=== PATIENT | male | born 1930 | race Caucasian/White ===

== ENCOUNTER 2017-04-28 08:10 | Inpatient (IN) | payer MEDICARE, OTHER ==
[~2017-04-28] VITALS: Ht 175.3 cm; Wt 84.0 kg
[~2017-04-28 08:10] MED LIST: AMLO2.5T2 PO; ATOR10TA PO; CALC3.7S3; CLOP75TA15 PO; DOCU-28 PO; FLUT1BLS3 IH; FURO-149 PO; GABA-532 PO; HYDR-569 PO; IPRA3AMP IH; ISOS30TA6 PO; LIDO700A5 TOP; LORA0.5T PO; MORP100S12 PO; NITR0.4T SL; PANT-47 PO; POLY119P2 PO; POTA10TA10 PO; PRED5TAB PO; SPIIN INH
[2017-04-28] MEDS ORDERED: normal saline 1000ML IV soln IVB ONE ×2 (08:45)
[2017-04-28 08:51] LABS: BASOPHILS % (AUTO) 0.2 % (0-1); EOSINOPHILS # (AUTO) 0.1 X10'3 (0-0.9); EOSINOPHILS % (AUTO) 0.9 % (0-6); HEMATOCRIT 37.7 % (42.0-52.0); HEMOGLOBIN 12.8 g/dl (14.0-17.9); LYMPHOCYTES # (AUTO) 0.6 X10'3 (1.1-4.8); LYMPHOCYTES % (AUTO) 4.4 % (21-51); MEAN CORPUSCULAR VOLUME 88.3 FL (78-98); MEAN PLATELET VOLUME 6.2 FL (7.4-10.4); MONOCYTES # (AUTO) 0.4 X10'3 (0-0.9); NEUTROPHILS # (AUTO) 11.7 X10'3 (1.8-7.7); NEUTROPHILS % (AUTO) 91.5 % (42-75); PLATELET COUNT 284 X10'3 (140-440); RED BLOOD COUNT 4.27 X10'6 (4.70-6.10); RED CELL DISTRIBUTION WIDTH 16.8 % (11.5-14.5); WHITE BLOOD COUNT 12.8 X10'3 (4.5-11.0)
[2017-04-28 09:14] LABS: ALANINE AMINOTRANSFERASE 24 U/L (12-78); ALBUMIN 3.5 G/DL (3.4-5.0); ALKALINE PHOSPHATASE 36 IU/L (46-116); ANION GAP 9 (8-16); ASPARTATE AMINO TRANSFERASE 21 U/L (10-37); BILIRUBIN,TOTAL 0.4 MG/DL (0.1-1.0); BLOOD UREA NITROGEN 20 MG/DL (7-18); BUN/CREATININE RATIO 16.5 (5.4-32.0); CALCIUM 9.2 MG/DL (8.5-10.1); CHLORIDE 102 MMOL/L (99-107); CREATININE 1.21 MG/DL (0.60-1.10); GLUCOSE 104 MG/DL (70-104); POTASSIUM 3.4 MMOL/L (3.5-5.1); SODIUM 144 MMOL/L (135-145); TOTAL CARBON DIOXIDE 32.7 MMOL/L (24-32); eGFR 57 ML/MIN
[2017-04-28] MEDS ORDERED: levoFLOXACIN-Levaquin 750MG/D5 150 ML IV STA (10:20)
[2017-04-28] MEDS ORDERED: nitroGLYCERIN 0.4mg SUBLingual tab SL PRN (11:40)
[2017-04-28] MEDS ORDERED: acetaminophen 325mg tablet PO PRN (11:45)
[2017-04-28] MEDS ORDERED: mag hydrox/Alum hydrox/simeth 30ml oral suspension PO PRN (11:45)
[2017-04-28] MEDS ORDERED: ondansetron/PF 4mg/2ml inj IV PRN (11:45)
[2017-04-28] MEDS ORDERED: magnesium hydroxide 30ml (MOM) UD suspension PO PRN (11:45)
[2017-04-28] MEDS: normal saline 1000ml 1,000 ML IV SCH ×2 (12:48→21:47)
[2017-04-28] MEDS: ipratropium/albuterol 3ml nebule IH SCH ×4 (13:15→23:09)
[2017-04-28] MEDS: docusate sod 100mg capsule PO SCH (20:39)
[2017-04-28] MEDS: heparin, porcine 5000 units/ml vial SQ SCH (20:40)
[2017-04-29] VITALS (10 sets, daily range): BP systolic 80–144; BP diastolic 39–81
[2017-04-29] MEDS: ipratropium/albuterol 3ml nebule IH SCH ×6 (03:15→23:49)
[2017-04-29 06:42] LABS: BASOPHILS % (AUTO) 0.4 % (0-1); EOSINOPHILS % (AUTO) 0.2 % (0-6); HEMOGLOBIN 12.1 g/dl (14.0-17.9); LYMPHOCYTES % (AUTO) 12.4 % (21-51); MEAN CORPUSCULAR HEMOGLOBIN 29.4 PG (27.0-31.0); MEAN CORPUSCULAR HGB CONC 33.6 % (33.0-36.5); MEAN CORPUSCULAR VOLUME 87.6 FL (78-98); MEAN PLATELET VOLUME 6.3 FL (7.4-10.4); MONOCYTES # (AUTO) 0.5 X10'3 (0-0.9); MONOCYTES % (AUTO) 6.4 % (2-12); NEUTROPHILS # (AUTO) 6.2 X10'3 (1.8-7.7); NEUTROPHILS % (AUTO) 80.6 % (42-75); PLATELET COUNT 246 X10'3 (140-440); RED BLOOD COUNT 4.11 X10'6 (4.70-6.10); WHITE BLOOD COUNT 7.7 X10'3 (4.5-11.0)
[2017-04-29 07:04] LABS: ALANINE AMINOTRANSFERASE 21 U/L (12-78); ALBUMIN 2.7 G/DL (3.4-5.0); ALBUMIN/GLOBULIN RATIO 0.8 (1.1-1.5); ALKALINE PHOSPHATASE 27 IU/L (46-116); ANION GAP 10 (8-16); ASPARTATE AMINO TRANSFERASE 30 U/L (10-37); BILIRUBIN,TOTAL 0.4 MG/DL (0.1-1.0); BLOOD UREA NITROGEN 15 MG/DL (7-18); BUN/CREATININE RATIO 16.3 (5.4-32.0); CALCIUM 8.3 MG/DL (8.5-10.1); CHLORIDE 106 MMOL/L (99-107); CREATININE 0.92 MG/DL (0.60-1.10); GLUCOSE 83 MG/DL (70-104); POTASSIUM 3.3 MMOL/L (3.5-5.1); SODIUM 144 MMOL/L (135-145); TOTAL CARBON DIOXIDE 28.1 MMOL/L (24-32); eGFR 78 ML/MIN
[2017-04-29] MEDS: fluticasone/vilanterol 200mcg/25mcg inhaler IH SCH (07:17)
[2017-04-29] MEDS: normal saline 1000ml 1,000 ML IV SCH ×2 (07:44→17:24)
[2017-04-29] MEDS: polyethylene glycol 3350 17gm powd pack PO SCH (08:00)
[2017-04-29] MEDS: potassium chloride 10mEq ER tablet PO SCH (10:10)
[2017-04-29] MEDS: predniSONE 5mg tablet PO SCH (10:10)
[2017-04-29] MEDS: docusate sod 100mg capsule PO SCH ×2 (11:05→22:21)
[2017-04-29] MEDS: pantoprazole 40mg Tablet.DR PO SCH (11:05)
[2017-04-29] MEDS: HYDROcodone/acetaminophen 5mg/325mg tablet PO PRN ×2 (11:05→22:21)
[2017-04-29] MEDS: isosorbide mononitrate 30mg tab.SR.24H PO SCH (11:05)
[2017-04-29] MEDS: atorvastatin 10mg tablet PO SCH (11:05)
[2017-04-29] MEDS: furosemide 40mg tablet PO SCH (11:06)
[2017-04-29] MEDS: levoFLOXACIN-Levaquin 250mg/D5 50 ML IV SCH (11:06)
[2017-04-29] MEDS: gabapentin 300mg capsule PO SCH (11:06)
[2017-04-29] MEDS: amLODIPine 5mg tablet PO SCH (11:06)
[2017-04-29] MEDS: clopidogrel 75mg tablet PO SCH (11:06)
[2017-04-29] MEDS: LORazepam 0.5 MG tablet PO PRN (11:06)
[2017-04-29] MEDS: heparin, porcine 5000 units/ml vial SQ SCH ×2 (11:07→22:21)
[2017-04-30] MEDS: ipratropium/albuterol 3ml nebule IH SCH ×6 (03:04→23:39)
[2017-04-30] MEDS: HYDROcodone/acetaminophen 5mg/325mg tablet PO PRN ×4 (04:23→23:28)
[2017-04-30] MEDS: normal saline 1000ml 1,000 ML IV SCH ×3 (04:23→23:53)
[2017-04-30] MEDS: LORazepam 0.5 MG tablet PO PRN ×2 (05:22→23:28)
[2017-04-30 06:51] LABS: BASOPHILS % (AUTO) 0.1 % (0-1); EOSINOPHILS # (AUTO) 0.1 X10'3 (0-0.9); EOSINOPHILS % (AUTO) 1.3 % (0-6); HEMATOCRIT 34.5 % (42.0-52.0); HEMOGLOBIN 11.5 g/dl (14.0-17.9); LYMPHOCYTES # (AUTO) 1.4 X10'3 (1.1-4.8); LYMPHOCYTES % (AUTO) 21.4 % (21-51); MEAN CORPUSCULAR HEMOGLOBIN 29.4 PG (27.0-31.0); MEAN CORPUSCULAR HGB CONC 33.3 % (33.0-36.5); MEAN CORPUSCULAR VOLUME 88.3 FL (78-98); MEAN PLATELET VOLUME 6.3 FL (7.4-10.4); MONOCYTES # (AUTO) 0.4 X10'3 (0-0.9); MONOCYTES % (AUTO) 6.6 % (2-12); NEUTROPHILS # (AUTO) 4.5 X10'3 (1.8-7.7); NEUTROPHILS % (AUTO) 70.6 % (42-75); PLATELET COUNT 234 X10'3 (140-440); RED BLOOD COUNT 3.91 X10'6 (4.70-6.10); RED CELL DISTRIBUTION WIDTH 17.1 % (11.5-14.5); WHITE BLOOD COUNT 6.4 X10'3 (4.5-11.0)
[2017-04-30 07:00] VITALS: BP 129/64
[2017-04-30 07:02] LABS: ALANINE AMINOTRANSFERASE 27 U/L (12-78); ALBUMIN 2.5 G/DL (3.4-5.0); ALBUMIN/GLOBULIN RATIO 0.8 (1.1-1.5); ALKALINE PHOSPHATASE 24 IU/L (46-116); ANION GAP 9 (8-16); ASPARTATE AMINO TRANSFERASE 37 U/L (10-37); BILIRUBIN,TOTAL 0.3 MG/DL (0.1-1.0); BLOOD UREA NITROGEN 17 MG/DL (7-18); BUN/CREATININE RATIO 17.7 (5.4-32.0); CALCIUM 7.9 MG/DL (8.5-10.1); CHLORIDE 106 MMOL/L (99-107); CREATININE 0.96 MG/DL (0.60-1.10); GLUCOSE 78 MG/DL (70-104); POTASSIUM 3.6 MMOL/L (3.5-5.1); SODIUM 144 MMOL/L (135-145); TOTAL CARBON DIOXIDE 28.8 MMOL/L (24-32); TOTAL PROTEIN 5.6 G/DL (6.4-8.2); eGFR 74 ML/MIN
[2017-04-30] MEDS: fluticasone/vilanterol 200mcg/25mcg inhaler IH SCH (07:55)
[2017-04-30] MEDS: polyethylene glycol 3350 17gm powd pack PO SCH (08:00)
[2017-04-30] MEDS: gabapentin 300mg capsule PO SCH (08:08)
[2017-04-30] MEDS: clopidogrel 75mg tablet PO SCH (08:08)
[2017-04-30] MEDS: atorvastatin 10mg tablet PO SCH (08:08)
[2017-04-30] MEDS: furosemide 40mg tablet PO SCH (08:08)
[2017-04-30] MEDS: docusate sod 100mg capsule PO SCH ×2 (08:08→19:15)
[2017-04-30] MEDS: potassium chloride 10mEq ER tablet PO SCH (08:09)
[2017-04-30] MEDS: pantoprazole 40mg Tablet.DR PO SCH (08:09)
[2017-04-30] MEDS: levoFLOXACIN-Levaquin 250mg/D5 50 ML IV SCH (08:09)
[2017-04-30] MEDS: predniSONE 5mg tablet PO SCH (08:09)
[2017-04-30] MEDS: heparin, porcine 5000 units/ml vial SQ SCH ×2 (08:09→19:15)
[2017-04-30] MEDS: isosorbide mononitrate 30mg tab.SR.24H PO SCH (08:09)
[2017-04-30] MEDS: amLODIPine 5mg tablet PO SCH (08:09)
[2017-04-30 12:13] VITALS: BP 99/70
[2017-04-30 18:52] VITALS: BP 90/50
[2017-04-30] MEDS: lactobacillus rhamnosus 10,000 MMU CELLS/CAPSULE PO SCH (19:15)
[2017-04-30 19:20] VITALS: BP 106/57
[2017-04-30 23:30] VITALS: BP 126/72
[2017-05-01] MEDS: ipratropium/albuterol 3ml nebule IH SCH ×4 (05:30→16:20)
[2017-05-01] MEDS: HYDROcodone/acetaminophen 5mg/325mg tablet PO PRN (06:06)
[2017-05-01 06:29] LABS: BASOPHILS % (AUTO) 0.2 % (0-1); EOSINOPHILS % (AUTO) 0.6 % (0-6); HEMOGLOBIN 11.8 g/dl (14.0-17.9); LYMPHOCYTES # (AUTO) 1.3 X10'3 (1.1-4.8); LYMPHOCYTES % (AUTO) 27.4 % (21-51); MEAN CORPUSCULAR HEMOGLOBIN 29.6 PG (27.0-31.0); MEAN CORPUSCULAR HGB CONC 33.8 % (33.0-36.5); MEAN CORPUSCULAR VOLUME 87.8 FL (78-98); MEAN PLATELET VOLUME 6.3 FL (7.4-10.4); MONOCYTES # (AUTO) 0.4 X10'3 (0-0.9); MONOCYTES % (AUTO) 9.3 % (2-12); NEUTROPHILS % (AUTO) 62.5 % (42-75); PLATELET COUNT 239 X10'3 (140-440); RED BLOOD COUNT 3.98 X10'6 (4.70-6.10); RED CELL DISTRIBUTION WIDTH 17.2 % (11.5-14.5); WHITE BLOOD COUNT 4.7 X10'3 (4.5-11.0)
[2017-05-01 06:49] LABS: ALANINE AMINOTRANSFERASE 23 U/L (12-78); ALBUMIN 2.6 G/DL (3.4-5.0); ALBUMIN/GLOBULIN RATIO 0.8 (1.1-1.5); ALKALINE PHOSPHATASE 26 IU/L (46-116); ANION GAP 7 (8-16); ASPARTATE AMINO TRANSFERASE 38 U/L (10-37); BILIRUBIN,TOTAL 0.4 MG/DL (0.1-1.0); BLOOD UREA NITROGEN 17 MG/DL (7-18); BUN/CREATININE RATIO 18.3 (5.4-32.0); CHLORIDE 109 MMOL/L (99-107); CREATININE 0.93 MG/DL (0.60-1.10); GLUCOSE 83 MG/DL (70-104); POTASSIUM 3.5 MMOL/L (3.5-5.1); SODIUM 146 MMOL/L (135-145); TOTAL CARBON DIOXIDE 30.3 MMOL/L (24-32); TOTAL PROTEIN 5.8 G/DL (6.4-8.2); eGFR 77 ML/MIN
[2017-05-01] MEDS: docusate sod 100mg capsule PO SCH (07:51)
[2017-05-01] MEDS: polyethylene glycol 3350 17gm powd pack PO SCH (07:51)
[2017-05-01] MEDS: predniSONE 5mg tablet PO SCH (07:51)
[2017-05-01] MEDS: isosorbide mononitrate 30mg tab.SR.24H PO SCH (07:51)
[2017-05-01] MEDS: potassium chloride 10mEq ER tablet PO SCH (07:51)
[2017-05-01] MEDS: gabapentin 300mg capsule PO SCH (07:51)
[2017-05-01] MEDS: lactobacillus rhamnosus 10,000 MMU CELLS/CAPSULE PO SCH (07:52)
[2017-05-01] MEDS: clopidogrel 75mg tablet PO SCH (07:52)
[2017-05-01] MEDS: pantoprazole 40mg Tablet.DR PO SCH (07:52)
[2017-05-01] MEDS: atorvastatin 10mg tablet PO SCH (07:52)
[2017-05-01] MEDS: heparin, porcine 5000 units/ml vial SQ SCH (07:52)
[2017-05-01] MEDS: amLODIPine 5mg tablet PO SCH (07:52)
[2017-05-01] MEDS: levoFLOXACIN-Levaquin 250mg/D5 50 ML IV SCH (07:52)
[2017-05-01] MEDS: furosemide 40mg tablet PO SCH (07:52)
[2017-05-01 08:02] VITALS: BP 142/89
[2017-05-01] MEDS: fluticasone/vilanterol 200mcg/25mcg inhaler IH SCH (08:03)
[2017-05-01] MEDS: normal saline 1000ml 1,000 ML IV SCH (09:27)
[2017-05-01 15:14] VITALS: BP 102/69
[2017-05-01] MEDS: LORazepam 0.5 MG tablet PO PRN (16:07)
[2017-05-01 16:21] VITALS: BP 120/72
[2017-05-02] MEDS ORDERED: levoFLOXACIN 250mg tablet PO SCH (11:00)
== END 2017-05-01 17:29 | DRG 871 ==
LOC: ER 08:10 → ED HOLD 11:44 → EDBEDREQ 04-29 06:36 → SUR 3N 04-29 07:47
PROVIDERS: ADMIT Family Medicine; ATTEND Family Medicine
DX: A41.9 Sepsis, unspecified organism (principal); J96.21 Acute and chronic respiratory failure with hypoxia; N17.9 Acute kidney failure, unspecified; J18.9 Pneumonia, unspecified organism; J44.0 Chronic obstructive pulmonary disease with (acute) lower respiratory infection; F03.90 Unspecified dementia, unspecified severity, without behavioral disturbance, psychotic disturbance, mood disturbance, and anxiety; I48.91 Unspecified atrial fibrillation; J96.22 Acute and chronic respiratory failure with hypercapnia; Y95 Nosocomial condition; E78.00 Pure hypercholesterolemia, unspecified; J44.9 Chronic obstructive pulmonary disease, unspecified; E78.5 Hyperlipidemia, unspecified; G89.29 Other chronic pain; M54.9 Dorsalgia, unspecified; F41.9 Anxiety disorder, unspecified; I10 Essential (primary) hypertension; Z66 Do not resuscitate; Z88.0 Allergy status to penicillin; Z79.899 Other long term (current) drug therapy; Z79.02 Long term (current) use of antithrombotics/antiplatelets; Z86.73 Personal history of transient ischemic attack (TIA), and cerebral infarction without residual deficits
CPT/HCPCS: 36415; 71046; 80053; 83605; 83880; 84484; 85025; 87040; 87070; 93005; 94640; 94760; 96361; 96365; 97162; 97530; 99285; A6212; A6446; J1644; J1956; J7030; J7512